=== PATIENT | female | born 1990 ===

== ENCOUNTER 2019-07-27 15:52 | Emergency (ER) | payer BC, OTHER ==
[~2019-07-27] VITALS: Ht 175.3 cm; Wt 84.8 kg
--- NOTE | 2019-07-27 16:21 | ED EENT ---
History of Present Illness General Chief Complaint: Oral/Throat Problems Stated Complaint: LT FACIAL SWELLING Source: patient, family Exam Limitations: no limitations History of Present Illness Date Seen by Provider: Jul 27, 2019 Time Seen by Provider: 16:01 Initial Comments Patient presents to ER by private conveyance with significant other and chief complaint that Saturday, 7 days ago she started having some sore throat and so she went to urgent care and was tested positive for mono. She was given amoxicillin for possible infection and she says is not helped much she has pressure and pain in her left ear swelling in her left face. She's been using ibuprofen 800 mg with minimal results. She would like some relief for the pain. Having no nausea vomiting , dysuria abdominal pain chest pain shortness of breath cough Allergies and Home Medications Patient Home Medication List Home Medication List Reviewed: Yes Review of Systems Review of Systems Constitutional: No chills, No fever; malaise Eyes: Denies Blindness, Denies Blurred Vision, Denies Drainage Ears: Denies Dizziness, Denies Pain Nose: denies clots, denies congestion Mouth: see HPI; denies clots, denies loose teeth; pain, swelling Throat: see HPI, pain; denies swelling Respiratory: No cough, No short of breath Cardiovascular: No chest pain, No edema Gastrointestinal: No abdominal pain, No nausea Past [id number]-[id number] Hx Patient Social History Alcohol Use: Denies Use Recreational Drug Use: No Physical Exam Height, Weight, BMI Height: '" Weight: lbs. oz. kg; BMI Method: General Appearance: WD/WN, no apparent distress Eyes: bilateral eye normal inspection, bilateral eye PERRL, bilateral eye EOMI Ears: right ear TM normal; left ear TM dull (mucoid effusion); bilateral ear auricle normal, bilateral ear canal normal Nose: normal inspection; No discharge Mouth/Throat: normal mouth inspection, pharynx normal, other (mild injection of the retropharynx. No tonsils. No abscess palpable or visible. Mild swelling and tenderness of the left face over the mandible and submandibular) Neck: lymphadenopathy (R), lymphadenopathy (L), tender lateral (anterior with cervical lymphadenopathy) Cardiovascular: normal peripheral pulses, regular rate, rhythm Neurologic/Psychiatric: alert, normal mood/affect Progress/Results/Core Measures Progress Progress Note : Time: 16:17 Progress Note We'll trial a single dose of Solu-Medrol IM. Tylenol 3. Conservative care counseling. Encourage Naprosyn. Counseled about spleen risk as well as expectations for disease progression. No evidence of airway compromise. No meningismus. Departure Impression Primary Impression: Mononucleosis Qualified Codes: B27.00 - Gammaherpesviral mononucleosis without complication Disposition: HOME, SELF-CARE Condition: Stable Departure-Patient Inst. Decision time for Depature: 16:19 Referrals: [facility]DEN[facility] (PCP) Primary Care Physician AMINA ZAVALA APRN (Family) Primary Care Physician Patient Instructions: Mononucleosis (DC) Add. Discharge Instructions: Warm compresses. Tylenol 650 mg every 8 hours. Naprosyn 2 capsules twice a day or ibuprofen 800 mg 3 times a day. Avoid any dangerous activities that might result in being hit in the abdomen such as sports, climbing, driving without a seatbelt etc. Expect 2-3 weeks for resolution of facial and neck symptoms. Expect malaise/fatigue for 6 months after the start of the symptoms. 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 Finished antibiotics as prescribed. 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 Tylenol 3 one tablet every 6 hours as needed for breakthrough pain. Follow-up with primary care for further management of symptoms. All discharge instructions reviewed with patient and/or family. Voiced understanding. Scripts Acetaminophen with Codeine (Tylenol with Codeine #3 Tablet) 1 Each Tablet 1 EACH PO Q6H PRN for BREAKTHROUGH PAIN, #14 TAB 0 Refills Prov: CARLOS PINZON 07/27/19 CARLOS PINZON Jul 27, 2019 16:21
[2019-07-27] MEDS ORDERED: ACET-789 PO (16:22)
[2019-07-27] MEDS ORDERED: methylPREDNISolone 125 MG (Solu-MEDROL) VIAL IM ONE (16:30)
[2019-07-27 16:33] VITALS: BP 136/69
== END 2019-07-27 16:35 | disposition home or self-care (01) ==
LOC: ER FS 15:55
DX: B27.90 Infectious mononucleosis, unspecified without complication (principal)
CPT/HCPCS: 99284